=== PATIENT | male | born 1990 | race Caucasian/White ===

== ENCOUNTER 2018-02-11 07:38 | Emergency (ER) | payer BC ==
--- NOTE | 2018-02-11 08:22 | UC ---
GI Bleed HPI - HPI Summary HPI Summary: Patient to the urgent care today with his significant other complaints of throwing up aimee bright red blood yesterday after 2 days of binge drinking at least 15 beers a day. Patient's usual drinking pattern is 15 beers twice a week has been drinking that heavily since the age of 16 and began drinking alcohol he believes to be age of 11. Patient has never had any bloody emesis in the past. Patient has chronic diarrhea which he describes to be yellow and green in color has never noticed any black tarry or bloody stool. Patient complains of no abdominal pain. Patient reports family members who are alcoholic. On initial assessment patient stated he doesn't believe these alcoholic he handles his alcohol better than that and only drinks 2 days. - History Of Current Complaint Chief Complaint: UCGI Stated Complaint: VOMITING BLOOD (YESTERDAY) Time Seen by Provider: 02/11/18 08:11 Hx Obtained From: Patient Onset/Duration: Sudden Onset Severity: Hematemesis - times 1 Severity Currently: None Pain Intensity: 0 Pain Scale Used: 0-10 Numeric Associated Pain: None - Allergies/Home medications Allergies/Adverse Reactions: Allergies Allergy/AdvReac Type Severity Reaction Status Date / Time No Known Allergies Allergy Verified 02/11/18 07:59 Home Medications: Home Medications Lactobacillus Rhamnosus R0011 [Probiotic Digestive Care] 1 each PO 02/11/18 [ History] PMH/Surg Hx/FS Hx/Imm Hx Previously Healthy: No - Surgical History Surgical History: None - Family History Known Family History: Positive: Other Family History: Alcoholism - Social History Occupation: Employed Full-time Lives: With Family Alcohol Use: Weekly Alcohol Amount: 15 beers two times a week Substance Use Type: Excessive Caffeine Smoking Status (MU): Heavy Every Day Tobacco Smoker Type: Smokeless Tobacco Amount Used/How Often: 2 cans/day Length of Time of Smoking/Using Tobacco: Since Age 15 Cessation Counseling: Patient Advised to Stop Review of Systems Constitutional: Negative Skin: Negative Eyes: Negative ENT: Negative Respiratory: Negative Cardiovascular: Negative Gastrointestinal: Vomiting - one bloody emesis after drinking 15 beersand first he vomtined chicken and ibarra the the sexond emesis had blood in it Genitourinary: Negative Motor: Negative Neurovascular: Negative Musculoskeletal: Negative Neurological: Negative Psychological: Negative Is Patient Immunocompromised?: No All Other Systems Reviewed And Are Negative: Yes Physical Exam Triage Information Reviewed: Yes Appearance: Well-Appearing, No Pain Distress, Well-Nourished Vital Signs: Initial Vital Signs Temp 97.7 F 02/11/18 07:53 Pulse 77 02/11/18 07:53 Resp 16 02/11/18 07:53 BP 124/73 02/11/18 07:53 Pulse Ox 100 02/11/18 07:53 Vital Signs Reviewed: Yes Eye Exam: Normal Eyes: Positive: Conjunctiva Clear ENT Exam: Normal ENT: Positive: Normal ENT inspection, Hearing grossly normal, Pharynx normal, TMs normal, Uvula midline. Negative: Nasal congestion, Tonsillar swelling, Tonsillar exudate, Trismus, Muffled voice, Hoarse voice, Dental tenderness, Sinus tenderness Dental Exam: Normal Neck exam: Normal Neck: Positive: Supple, Nontender, No Lymphadenopathy Respiratory Exam: Normal Respiratory: Positive: Chest non-tender, Lungs clear, Normal breath sounds, No respiratory distress, No accessory muscle use Cardiovascular Exam: Normal Cardiovascular: Positive: RRR, No Murmur, Pulses Normal, Brisk Capillary Refill Abdominal Exam: Normal Abdomen Description: Positive: Nontender, Soft, Hepatomegaly - 1-2 finger breadths below ribs. Negative: CVA Tenderness (R), CVA Tenderness (L) Bowel Sounds: Positive: Present Musculoskeletal Exam: Normal Musculoskeletal: Positive: Strength Intact, ROM Intact, No Edema Neurological Exam: Normal Neurological: Positive: Alert, Muscle Tone Normal Psychological Exam: Normal Skin Exam: Normal Diagnostics - Laboratory Diagnostic Studies Completed/Ordered: stool guiac negative, orthostatic vs wnl , urine-trace lysed blood, protien. patient scored a 5 on DSM 5 assessment for alcohol use disorder -and meets critera for heavy alcohol use Bleed Course/Dx - Course Course Of Treatment: carafate, prilosec, b vitamins lab studies, follow with Dr. Swan in 3 days, alcohol abuse education and resources to quit/decrease alcohol use provided to patient. patient verbalized understanding to go to hospital for any bloody emesis or black tarry or bloody stool. - Differential Dx/Diagnosis Provider Diagnoses: nicotine dependant, moderate alcohol abuse disorder, gastritis Discharge - Sign-Out/Discharge Documenting (check all that apply): Discharge/Admit/Transfer - Discharge Plan Condition: Stable Disposition: HOME Prescriptions: Omeprazole CAP* [Prilosec CAP* 20 MG] 20 mg PO BEDTIME #30 cap. Sucralfate TAB* [Carafate*] 1 gm PO ACHS #120 tab Patient Education Materials: Thiamine (By mouth), Folic Acid (By mouth), Gastritis (DC), Diet for Stomach Ulcers and Gastritis (ED), Abuse of Alcohol (ED ), At-Risk Alcohol Use (ED) Referrals: [facility] [Outside] [facility] [Outside] [facility] [Outside] [facility] [Outside] [facility] [Outside] [facility] [Outside] Genaro Gonzalez MD [Primary Care Provider] - 3 Days - Billing Disposition and Condition Condition: STABLE Disposition: Home
[2018-02-11 09:04] VITALS: BP 137/86
[2018-02-11 14:30] LABS: ABS Basophils 0.1 10^3/ul (0-0.2); ABS Eosinophils 0.2 10^3/ul (0-0.6); ABS Lymphocytes 3.6 10^3/ul (1.0-4.8); ABS Monocytes 0.9 10^3/ul (0-0.8); ABS Neutrophils 4.9 10^3/ul (1.5-7.7); ABS Nucleated RBC 0 10^3/ul; Eosinophil % 2.3 % (0-6); Hematocrit 41 % (42-52); Lymphocyte % 37.5 % (25-47); Mean Corpuscular HGB Conc 34 g/dl (31-36); Mean Corpuscular Hemoglobin 30 pg (27-31); Mean Corpuscular Volume 87 fL (80-94); Mean Platelet Volume 9.3 um3 (7.4-10.4); Nucleated Red Blood Cells % 0; Platelet Count 232 10^3/ul (150-450); Red Blood Count 4.73 10^6/ul (4.00-5.40); Red Cell Distribution Width 13 % (10.5-15); White Blood Count 9.6 10^3/ul (3.5-10.8)
[2018-02-11 15:34] LABS: EGFR Non-African American 106.9 (>60)
== END 2018-02-11 09:19 | disposition home or self-care (01) ==
LOC: UCCORT 07:38
DX: K29.70 Gastritis, unspecified, without bleeding (principal); F10.10 Alcohol abuse, uncomplicated; F17.290 Nicotine dependence, other tobacco product, uncomplicated
CPT/HCPCS: 36415; 80053; 81003; 82150; 82272; 83690; 85025; 99202; G0463